=== PATIENT | male | born 1970 | race Caucasian/White ===

== ENCOUNTER 2016-11-01 22:45 | Emergency (ER) | payer MEDICAID ==
[~2016-11-01] VITALS: Ht 180.3 cm; Wt 109.0 kg
[~2016-11-01 22:45] MED LIST: OXYC10TA47 PO; RISP0.2518
[2016-11-01] MEDS ORDERED: ONDANSETRON 2MG/ML, 2ML IVPush ONE (23:30)
[2016-11-01] MEDS ORDERED: SODIUM CHLORIDE 0.9% 1,000ML IV ONE (23:30)
[2016-11-01] MEDS ORDERED: SODIUM CHLORIDE FLUSH 10ML SYR IVF ONE (23:30)
[2016-11-01] MEDS ORDERED: KETOROLAC 30 MG/1 ML IVPush ONE (23:30)
[2016-11-01] MEDS ORDERED: ONDANSETRON 2MG/ML, 2ML ONE (23:40)
[2016-11-01] MEDS ORDERED: HYDROmorphone 1 MG/ML, 1ML ONE (23:40)
[2016-11-01] MEDS ORDERED: KETOROLAC 30 MG/1 ML ONE (23:40)
[2016-11-01 23:44] LABS: HEMATOCRIT 46.8 % (39.2-51.8); HEMOGLOBIN 16.3 g/dL (13.7-18.0); WHITE BLOOD COUNT 11.3 x10^3/uL (3.4-10)
[2016-11-01 23:52] LABS: BLOOD UREA NITROGEN 13 mg/dL (7-18)
[2016-11-02] MEDS: HYDROmorphone 1 MG/ML, 1ML IVPush PRN ×2 (00:03→01:46)
[2016-11-02] MEDS ORDERED: SODIUM CHLORIDE 0.9% 1,000ML IVBOLUS ONE (01:00)
[2016-11-02] MEDS ORDERED: HYDROmorphone 1 MG/ML, 1ML ONE (01:38)
[2016-11-02 02:00] LABS: PATH.CAST-FLAG NOT PRESENT; SPERM-FLAG NOT PRESENT; SRC-FLAG NOT PRESENT; XTAL-FLAG NOT PRESENT; YLC-FLAG NOT PRESENT
[2016-11-02] MEDS ORDERED: ONDANSETRON 2MG/ML, 2ML ONE (03:09)
[2016-11-02] MEDS ORDERED: ONDANSETRON 2MG/ML, 2ML IVPush ONE (03:30)
[2016-11-02 03:38] VITALS: BP 115/71
== END 2016-11-02 03:41 | disposition home or self-care (01) ==
LOC: ED 23:33
DX: N20.2 Calculus of kidney with calculus of ureter (principal)
CPT/HCPCS: 36415; 74176; 80048; 81001; 82040; 85025; 93005; 96361; 96374; 96375; 96376; 99285; J1170; J1885; J2405; J7030

== ENCOUNTER 2016-11-17 04:55 | Emergency (ER) | payer MEDICAID ==
[~2016-11-17] VITALS: Ht 180.3 cm; Wt 109.8 kg
[2016-11-17] MEDS ORDERED: TAMS0.4C2 PO (05:33)
[2016-11-17] MEDS ORDERED: ONDA4TAB10 PO (05:34)
[2016-11-17] MEDS ORDERED: IBUP-1222 PO (05:35)
[2016-11-17] MEDS ORDERED: KETOROLAC 30 MG/1 ML ONE (05:56)
[2016-11-17] MEDS ORDERED: ONDANSETRON 2MG/ML, 2ML ONE (05:56)
[2016-11-17] MEDS ORDERED: SODIUM CHLORIDE FLUSH 10ML SYR IVF ONE (06:00)
[2016-11-17] MEDS ORDERED: KETOROLAC 30 MG/1 ML IVPush ONE (06:00)
[2016-11-17] MEDS ORDERED: ONDANSETRON 2MG/ML, 2ML IVPush ONE (06:00)
[2016-11-17 06:26] LABS: HEMOGLOBIN 16.2 g/dL (13.7-18.0); WHITE BLOOD COUNT 7.3 x10^3/uL (3.4-10)
[2016-11-17 06:35] LABS: BLOOD UREA NITROGEN 11 mg/dL (7-18)
[2016-11-17 07:28] VITALS: BP 117/63
== END 2016-11-17 07:42 | disposition home or self-care (01) ==
LOC: ED 07:36
DX: N20.2 Calculus of kidney with calculus of ureter (principal); R31.9 Hematuria, unspecified
CPT/HCPCS: 36415; 74176; 80048; 81001; 82040; 85025; 96374; 96375; 99285; J1885; J2405

== ENCOUNTER 2016-11-25 08:46 | Emergency (ER) | payer MEDICAID ==
[~2016-11-25] VITALS: Ht 180.3 cm; Wt 110.0 kg
[~2016-11-25 08:46] MED LIST changes: +IBUP-1222 PO; +ONDA4TAB10 PO; +TAMS0.4C2 PO
[2016-11-25 08:48] VITALS: BP 144/84
[2016-11-25] MEDS ORDERED: ONDANSETRON 2MG/ML, 2ML ONE (09:33)
[2016-11-25] MEDS ORDERED: KETOROLAC 30 MG/1 ML ONE (09:33)
[2016-11-25 09:55] LABS: HEMATOCRIT 47.8 % (39.2-51.8); HEMOGLOBIN 16.6 g/dL (13.7-18.0)
[2016-11-25] MEDS ORDERED: KETOROLAC 30 MG/1 ML IVPush ONE (10:00)
[2016-11-25] MEDS ORDERED: SODIUM CHLORIDE FLUSH 10ML SYR IVF ONE (10:00)
[2016-11-25] MEDS ORDERED: ONDANSETRON 2MG/ML, 2ML IVPush ONE (10:00)
[2016-11-25 10:06] LABS: BLOOD UREA NITROGEN 11 mg/dL (7-18)
== END 2016-11-25 11:34 | disposition home or self-care (01) ==
LOC: ED 11:28
DX: N23 Unspecified renal colic (principal)
CPT/HCPCS: 36415; 74000; 76775; 80048; 81003; 82040; 85025; 96374; 96375; 99285; J1885; J2405

== ENCOUNTER 2017-10-11 14:21 | Emergency (ER) | payer MEDICAID ==
[~2017-10-11] VITALS: Ht 180.3 cm; Wt 103.0 kg
[2017-10-11 15:16] LABS: BASOPHILS # (AUTO) 0.04 x10^3/uL (0-0.1); BASOPHILS % (AUTO) 0 % (0-1); EOSINOPHILS # (AUTO) 0.14 x10^3/uL (0-0.4); EOSINOPHILS % (AUTO) 2 % (1-7); LYMPHOCYTES # (AUTO) 1.48 x10^3/uL (1-3.4); LYMPHOCYTES % (AUTO) 16 % (22-44); MD NO; MEAN CORPUSCULAR HEMOGLOBIN 31.9 pg (27.5-34.5); MEAN CORPUSCULAR HGB CONC 34.8 g/dL (33.2-36.2); MEAN CORPUSCULAR VOLUME 91.5 fL (81-97); MEAN PLATELET VOLUME 8.4 fL (7.4-10.4); MONOCYTES # (AUTO) 0.36 x10^3/uL (0.2-0.8); MONOCYTES % (AUTO) 4 % (2-9); NEUTROPHILS # (AUTO) 7.39 x10^3/uL (1.8-6.8); NEUTROPHILS % (AUTO) 79 % (42-75); PLATELET COUNT 242 x10^3/uL (130-400); RED BLOOD COUNT 5.22 x10^6/uL (4.38-5.82); RED CELL DISTRIBUTION WIDTH 12.9 % (9.4-14.8)
[2017-10-11 15:17] LABS: ALANINE AMINOTRANSFERASE 76 U/L (12-78); ALBUMIN 3.8 g/dL (3.4-5.0); CALCIUM 8.4 mg/dL (8.5-10.1); CREATININE 0.98 mg/dL (0.7-1.3)
[2017-10-11 15:19] LABS: TROPONIN I < 0.015 ng/mL (0.000-0.045)
[2017-10-11] MEDS ORDERED: MAALOX/HYOSCYAMINE/LIDOCAINE 45 ML BTL PO ONE (15:30)
[2017-10-11] MEDS ORDERED: MAALOX/HYOSCYAMINE/LIDOCAINE 45 ML BTL ONE (15:32)
[2017-10-11 15:40] LABS: ALKALINE PHOSPHATASE 67 U/L (45-117); BILIRUBIN,TOTAL 1.9 mg/dL (0.2-1.0); TOTAL PROTEIN 6.6 g/dL (6.4-8.2)
[2017-10-11 15:41] LABS: ANION GAP 8 mmol/L (5-15); CHLORIDE 110 mmol/L (98-107)
[2017-10-11 16:26] LABS: MICROSCOPIC AUTO
[2017-10-11 16:39] LABS: CULTURE INDICATED? YES
[2017-10-11] MEDS ORDERED: OMNIPAQUE 350 MG/ML, 100ML BOTTLE ONE (17:29)
[2017-10-11 17:32] VITALS: BP 112/44
== END 2017-10-11 18:35 | disposition home or self-care (01) ==
LOC: ED 18:29
DX: K29.00 Acute gastritis without bleeding (principal); F31.9 Bipolar disorder, unspecified; F20.9 Schizophrenia, unspecified
CPT/HCPCS: 36415; 71045; 74177; 80053; 81001; 83690; 84484; 85025; 87086; 93005; 99285; Q9967

== ENCOUNTER 2018-03-11 08:29 | Emergency (ER) | payer MEDICAID ==
[~2018-03-11] VITALS: Ht 180.3 cm; Wt 103.8 kg
[2018-03-11 08:31] VITALS: BP 143/81
--- NOTE | 2018-03-11 09:06 | NUR ---
PT OOB AMBULATED UPRIGHT STEADY GAIT TO USE PHONE IN HALLWAY.
--- NOTE | 2018-03-11 09:07 | NUR ---
PT AMBULATED TO RADIOLOGY WITH TECH ESCORT
[2018-03-11 09:30] LABS: BASOPHILS # (AUTO) 0.05 x10^3/uL (0-0.1); BASOPHILS % (AUTO) 1 % (0-1); EOSINOPHILS # (AUTO) 0.16 x10^3/uL (0-0.4); EOSINOPHILS % (AUTO) 2 % (1-7); LYMPHOCYTES # (AUTO) 1.72 x10^3/uL (1-3.4); LYMPHOCYTES % (AUTO) 18 % (22-44); MD NO; MEAN CORPUSCULAR HEMOGLOBIN 31.8 pg (27.5-34.5); MEAN CORPUSCULAR HGB CONC 34.4 g/dL (33.2-36.2); MEAN CORPUSCULAR VOLUME 92.5 fL (81-97); MEAN PLATELET VOLUME 8.3 fL (7.4-10.4); MONOCYTES # (AUTO) 0.57 x10^3/uL (0.2-0.8); MONOCYTES % (AUTO) 6 % (2-9); NEUTROPHILS # (AUTO) 7.11 x10^3/uL (1.8-6.8); NEUTROPHILS % (AUTO) 74 % (42-75); PLATELET COUNT 249 x10^3/uL (130-400); RED CELL DISTRIBUTION WIDTH 12.7 % (9.4-14.8)
[2018-03-11 09:45] LABS: ALBUMIN 4.1 g/dL (3.4-5.0)
[2018-03-11 09:48] LABS: TROPONIN I < 0.015 ng/mL (0.000-0.045)
[2018-03-11 10:18] LABS: ANION GAP 8 mmol/L (5-15); CHLORIDE 111 mmol/L (98-107)
--- NOTE | 2018-03-11 10:36 | NUR ---
PT LEFT W/O WAITING FOR D/C INSTRUCTIONS OR RX. PAPERS LEFT AT CHARGE NURSE DESK IF PT RTNS
== END 2018-03-11 10:37 | disposition home or self-care (01) ==
LOC: ED 09:55
DX: S70.02XA Contusion of left hip, initial encounter (principal); S50.11XA Contusion of right forearm, initial encounter; R42 Dizziness and giddiness; R07.89 Other chest pain; I10 Essential (primary) hypertension; F20.9 Schizophrenia, unspecified; X58.XXXA Exposure to other specified factors, initial encounter; Y93.89 Activity, other specified; Y92.89 Other specified places as the place of occurrence of the external cause; Y99.8 Other external cause status
CPT/HCPCS: 36415; 71045; 72190; 80048; 82040; 84484; 85025; 93005; 99284

== ENCOUNTER 2018-05-28 08:17 | Emergency (ER) | payer MEDICAID ==
[~2018-05-28] VITALS: Ht 180.3 cm; Wt 103.0 kg
[2018-05-28 08:28] VITALS: BP 131/89
--- NOTE | 2018-05-28 09:50 | NUR ---
ASSUMED CARE OF PT FROM LOBBY AT THIS TIME FOR RME.
[2018-05-28] MEDS ORDERED: HYDROcodone/APAP 5/325 TABLET ONE (10:23)
[2018-05-28] MEDS ORDERED: HYDROcodone/APAP 5/325 TABLET PO ONE (11:00)
== END 2018-05-28 10:40 | disposition home or self-care (01) ==
LOC: ED 10:30
DX: K02.9 Dental caries, unspecified (principal); F17.200 Nicotine dependence, unspecified, uncomplicated
CPT/HCPCS: 99283

== ENCOUNTER 2018-09-09 13:46 | Emergency (ER) | payer MEDICAID, OTHER ==
[~2018-09-09] VITALS: Ht 180.3 cm; Wt 99.9 kg
[2018-09-09 13:50] VITALS: BP 114/76
[2018-09-09] MEDS ORDERED: CYCLOBENZAPRINE 10 MG TABLET PO ONE (14:30)
[2018-09-09] MEDS ORDERED: HYDROcodone/APAP 5/325 TABLET PO ONE (14:30)
[2018-09-09] MEDS ORDERED: KETOROLAC 30 MG/1 ML IM ONE (14:30)
[2018-09-09] MEDS ORDERED: CYCLOBENZAPRINE 10 MG TABLET ONE (14:34)
[2018-09-09] MEDS ORDERED: HYDROcodone/APAP 5/325 TABLET ONE (14:34)
[2018-09-09] MEDS ORDERED: KETOROLAC 30 MG/1 ML ONE (14:34)
== END 2018-09-09 15:53 | disposition home or self-care (01) ==
LOC: ED 15:35
DX: S39.012A Strain of muscle, fascia and tendon of lower back, initial encounter (principal); S33.5XXA Sprain of ligaments of lumbar spine, initial encounter; M46.1 Sacroiliitis, not elsewhere classified; G89.11 Acute pain due to trauma; I10 Essential (primary) hypertension; F20.9 Schizophrenia, unspecified; F17.200 Nicotine dependence, unspecified, uncomplicated; X50.0XXA Overexertion from strenuous movement or load, initial encounter; Y93.89 Activity, other specified; Y92.89 Other specified places as the place of occurrence of the external cause; Y99.8 Other external cause status
CPT/HCPCS: 72110; 99283

== ENCOUNTER 2019-02-12 17:53 | Emergency (ER) | payer MEDICAID, OTHER ==
[~2019-02-12] VITALS: Ht 180.3 cm; Wt 101.2 kg
[2019-02-12 17:55] VITALS: BP 153/68
--- NOTE | 2019-02-12 18:33 | NUR ---
FIRST CONTACT WITH PT. PT STATES "I'M HAVING ABDOMINAL TIGHTNESS AND IT REALLY HURTS, THERES BUMPS ON MY SIDES, I;M HAVING CONTRACTIONS, MY ABDOMEN FEELS LIKE ITS GOING TO CAVE IN, I'M ON [place] RIGHT NOW HONESTLY" C/O ALL QUADRANTS ABD PAIN RADIATING TO BILATERAL LOWER BACK WITH NAUSEA. PT'S AOX4. RESPS EVEN AND UNLABORED. BP/SPO2 MONITORS IN PLACE. CALL LIGHT WITHIN REACH.
--- NOTE | 2019-02-12 18:48 | NUR ---
REPORT GIVEN TO LARRY MAYO.
[2019-02-12 19:20] LABS: BASOPHILS # (AUTO) 0.06 x10^3/uL (0-0.1); BASOPHILS % (AUTO) 1 % (0-1); EOSINOPHILS # (AUTO) 0.31 x10^3/uL (0-0.4); EOSINOPHILS % (AUTO) 3 % (1-7); LYMPHOCYTES # (AUTO) 2.42 x10^3/uL (1-3.4); LYMPHOCYTES % (AUTO) 20 % (22-44); MD NO; MEAN CORPUSCULAR HEMOGLOBIN 32.4 pg (27.5-34.5); MEAN CORPUSCULAR HGB CONC 34.1 g/dL (33.2-36.2); MEAN CORPUSCULAR VOLUME 94.9 fL (81-97); MEAN PLATELET VOLUME 7.7 fL (7.4-10.4); MONOCYTES # (AUTO) 0.45 x10^3/uL (0.2-0.8); MONOCYTES % (AUTO) 4 % (2-9); NEUTROPHILS # (AUTO) 8.98 x10^3/uL (1.8-6.8); NEUTROPHILS % (AUTO) 74 % (42-75); PLATELET COUNT 280 x10^3/uL (130-400); RED BLOOD COUNT 5.07 x10^6/uL (4.38-5.82); RED CELL DISTRIBUTION WIDTH 12.8 % (9.4-14.8)
[2019-02-12 19:32] LABS: ALANINE AMINOTRANSFERASE 46 U/L (12-78); ALBUMIN 3.8 g/dL (3.4-5.0); ANION GAP 9 mmol/L (5-15); CALCIUM 8.6 mg/dL (8.5-10.1); CHLORIDE 109 mmol/L (98-107); CREATININE 1.11 mg/dL (0.7-1.3)
[2019-02-12 19:36] LABS: ALKALINE PHOSPHATASE 87 U/L (45-117); BILIRUBIN,TOTAL 1.1 mg/dL (0.2-1.0); TOTAL PROTEIN 6.8 g/dL (6.4-8.2); TROPONIN I < 0.015 ng/mL (0.000-0.045)
[2019-02-12 19:45] LABS: MICROSCOPIC NOT IND
[2019-02-12 19:50] LABS: CULTURE INDICATED? NO
== END 2019-02-12 20:28 | disposition home or self-care (01) ==
LOC: ED 20:22
DX: S39.012A Strain of muscle, fascia and tendon of lower back, initial encounter (principal); R07.89 Other chest pain; M62.838 Other muscle spasm; R10.11 Right upper quadrant pain; R10.13 Epigastric pain; R10.12 Left upper quadrant pain; F17.200 Nicotine dependence, unspecified, uncomplicated; X58.XXXA Exposure to other specified factors, initial encounter; Y93.89 Activity, other specified; Y92.89 Other specified places as the place of occurrence of the external cause; Y99.8 Other external cause status
CPT/HCPCS: 36415; 71045; 80053; 81003; 83690; 84484; 85025; 93005; 99284

== ENCOUNTER 2019-02-26 11:29 | Emergency (ER) | payer MEDICAID ==
[~2019-02-26] VITALS: Ht 180.3 cm; Wt 100.3 kg
[2019-02-26 11:37] VITALS: BP 137/80
== END 2019-02-26 12:40 | disposition home or self-care (01) ==
LOC: ED 11:56
DX: J20.9 Acute bronchitis, unspecified (principal); I10 Essential (primary) hypertension
CPT/HCPCS: 71046; 93005; 99283

== ENCOUNTER 2019-05-30 12:00 | Emergency (ER) | payer MEDICAID ==
[~2019-05-30] VITALS: Ht 180.3 cm; Wt 101.3 kg
[2019-05-30 12:12] VITALS: BP 127/75
--- NOTE | 2019-05-30 12:43 | NUR ---
Pt d/c from triage. Rx refill for dental caries. Has appt w/ dentist June 04. Verb. understanding of d/c instructions.
== END 2019-05-30 12:45 | disposition home or self-care (01) ==
LOC: ED 12:30
DX: K02.9 Dental caries, unspecified (principal); F17.200 Nicotine dependence, unspecified, uncomplicated
CPT/HCPCS: 99283